=== PATIENT | female | born 1990 | race African-American/Black ===

== ENCOUNTER 2018-01-15 04:02 | Emergency (ER) | payer MEDICAID ==
[~2018-01-15] VITALS: Ht 175.3 cm; Wt 109.0 kg
[2018-01-15 04:26] VITALS: BP 117/66
== END 2018-01-15 07:56 | disposition left against medical advice (07) ==
LOC: ER 04:53
DX: Z53.21 Procedure and treatment not carried out due to patient leaving prior to being seen by health care provider (principal)

== ENCOUNTER 2018-01-15 09:20 | Emergency (ER) | payer MEDICAID | END 2018-01-15 12:23 | disposition left against medical advice (07) | LOC: ER 09:20 | DX: Z53.21 Procedure and treatment not carried out due to patient leaving prior to being seen by health care provider (principal) ==